=== PATIENT | male | born 1995 | race Caucasian/White ===

== ENCOUNTER 2019-07-22 11:57 | Emergency (ER) | payer OTHER ==
[~2019-07-22] VITALS: Ht 175.3 cm; Wt 68.2 kg
--- NOTE | 2019-07-22 12:11 | PHYS DOC ---
Adult General Chief Complaint Chief Complaint: Chest pain HPI HPI Patient is a 24 year old male with past medical history significant for ADHD but on no medications presents via EMS secondary to complaint of intermittent sharp left-sided chest pain that is rated as moderate to severe that started around 9:00 this morning. He does not recall any specific injury or increased physical activity. Exacerbating factors include deep inspiration and palpation and movement. He denies shortness of breath cough fever or chills recently. He also complains of a headache that is 8/10. Currently his chest pain is 3/10. Review of Systems Review of Systems All other systems were reviewed and found to be within normal limits, except as documented in this note. Current Medications Current Medications Current Medications Medications (Trade) Dose Ordered Sig/Shay Start Time Stop Time Status Last Admin Dose Admin Acetaminophen (Tylenol) 650 mg 1X ONCE 07/22/19 12:15 07/22/19 12:16 DC 07/22/19 12:20 650 MG Aspirin (Children'S Aspirin) 324 mg 1X ONCE 07/22/19 12:15 07/22/19 12:16 DC 07/22/19 12:20 324 MG Allergies Allergies Allergies Coded Allergies Type Severity Reaction Last Updated Verified No Known Drug Allergies 07/22/19 No Physical Exam Physical Exam Constitutional: Well developed, well nourished, no acute distress, non-toxic appearance. [] HENT: Normocephalic, atraumatic, bilateral external ears normal, oropharynx moist, no oral exudates, nose normal. [] Eyes: PERRLA, EOMI, conjunctiva normal, no discharge. [] Neck: Normal range of motion, no tenderness, supple, no stridor. [] Cardiovascular:Heart rate regular rhythm, no murmur [] Lungs & Thorax: Bilateral breath sounds clear to auscultation reproducible tenderness to palpation of the left chest wall Abdomen: Bowel sounds normal, soft, no tenderness, no masses, no pulsatile masses. [] Skin: Warm, dry, no erythema, no rash. [] Back: No tenderness, no CVA tenderness. [] Extremities: No tenderness, no cyanosis, no clubbing, ROM intact, no edema. [] Neurologic: Alert and oriented X 3, normal motor function, normal sensory function, no focal deficits noted. [] Psychologic: Affect normal, judgement normal, mood normal. [] Current Patient Data Vital Signs Vital Signs Date Time Temp Pulse Resp B/P (MAP) Pulse Ox O2 Delivery O2 Flow Rate FiO2 07/22/19 11:57 98.3 83 16 127/82 (97) 97 Room Air 98.3 Lab Values Laboratory Tests Test 07/22/19 12:19 07/22/19 12:37 Sodium Level 141 mmol/L (136-145) Potassium Level 4.2 mmol/L (3.5-5.1) Chloride Level 103 mmol/L (98-107) Carbon Dioxide Level 28 mmol/L (21-32) Anion Gap 10 (6-14) Blood Urea Nitrogen 7 mg/dL (8-26) L Creatinine 1.0 mg/dL (0.7-1.3) Estimated GFR (Cockcroft-Gault) 92.6 Glucose Level 92 mg/dL (70-99) Calcium Level 9.7 mg/dL (8.5-10.1) Creatine Kinase 144 U/L (39-308) Creatine Kinase MB (Mass) 0.5 ng/mL (0.0-3.6) Creatine Kinase MB Relative Index 0.3 % (0-4) Troponin I Quantitative < 0.017 ng/mL (0.000-0.055) Lipase 58 U/L (73-393) L White Blood Count 5.4 x10^3/uL (4.0-11.0) Red Blood Count 5.54 x10^6/uL (4.30-5.70) Hemoglobin 16.6 g/dL (13.0-17.5) Hematocrit 48.3 % (39.0-53.0) Mean Corpuscular Volume 87 fL (79-100) Mean Corpuscular Hemoglobin 30 pg (25-35) Mean Corpuscular Hemoglobin Concent 34 g/dL (31-37) Red Cell Distribution Width 13.1 % (11.5-14.5) Platelet Count 260 x10^3/uL (140-400) Neutrophils (%) (Auto) 52 % (31-73) Lymphocytes (%) (Auto) 38 % (24-48) Monocytes (%) (Auto) 8 % (0-9) Eosinophils (%) (Auto) 1 % (0-3) Basophils (%) (Auto) 1 % (0-3) Neutrophils # (Auto) 2.8 x10^3/uL (1.8-7.7) Lymphocytes # (Auto) 2.0 x10^3/uL (1.0-4.8) Monocytes # (Auto) 0.4 x10^3/uL (0.0-1.1) Eosinophils # (Auto) 0.1 x10^3/uL (0.0-0.7) Basophils # (Auto) 0.0 x10^3/uL (0.0-0.2) Laboratory Tests 07/22/19 12:37 Laboratory Tests 07/22/19 12:19 EKG EKG [] EKG shows a sinus rhythm with no ST changes and normal intervals. Radiology/Procedures Radiology/Procedures [] Course & Med Decision Making Course & Med Decision Making Pertinent Labs and Imaging studies reviewed. (See chart for details) 1210: The patient is seen for headache and chest pain. His EKG is normal and his examination is more consistent with chest wall pain. Will give aspirin due to stated complaint and initiate cardiac work-up. Also give Tylenol for headache. 1318: Patient work-up is negative. We will start him on steroids and anti-inflammatory. Dragon Disclaimer Dragon Disclaimer This electronic medical record was generated, in whole or in part, using a voice recognition dictation system. Departure Departure Impression: Primary Impression: Chest wall pain Disposition: HOME, SELF-CARE Condition: STABLE Patient Instructions: Chest Wall Pain Additional Instructions: Please follow up with your doctor for worsening symptoms. Scripts Prednisone (PREDNISONE) 20 Mg Tablet 2 TAB PO DAILY, #10 TAB Prov: CASA TORRE DO 07/22/19 Diclofenac Sodium (DICLOFENAC SODIUM) 75 Mg Tablet.dr 1 TAB PO BID for 10 Days, #20 TAB 1 Refill Prov: CASA TORRE DO 07/22/19 The HEART Score for CP Pts HEART Score for Chest Pain: HEART Score for Chest Pain Response (Comments) Value History Slighlty/Non-Suspicious 0 ECG Normal 0 Age < 45 0 Risk Factors No Risk Factors 0 Troponin < Normal Limit 0 Total 0 Risk Factors: Risk Factors: None Risk Scores: Score 0 - 3: 2.5% MACE over next 6 weeks - Discharge Home Score 4 - 6: 20.3% MACE over next 6 weeks - Admit for Clinical Observation Score 7 - 10: 72.7% MACE over next 6 weeks - Early Invasive Strategies ACSA TORRE DO Jul 22, 2019 12:11
[2019-07-22] MEDS ORDERED: ACETAMINOPHEN 325 MG TABLET. PO ONE (12:15)
[2019-07-22] MEDS ORDERED: ASPIRIN CHEWABLE 81 MG TABLET. PO ONE (12:15)
--- NOTE | 2019-07-22 12:35 | RAD ---
Examination: CHEST AP ONLY History: Chest pain, headache Comparison: None. Findings: AP portable upright frontal view of the chest was obtained. Costophrenic angles are not fully included on this exam. The cardiomediastinal silhouette is normal. Lungs are clear. There is no pneumothorax. No significant pleural effusion is appreciated. No acute bone abnormality. IMPRESSION: No acute cardiopulmonary process. Electronically signed by: Tremayne Leong MD (07/22/2019 12:32 PM) [id number]
[2019-07-22 12:43] LABS: CALCIUM 9.7 mg/dL (8.5-10.1); GFR 92.6; POTASSIUM 4.2 mmol/L (3.5-5.1)
[2019-07-22 12:48] LABS: BASO % 1 % (0-3); EOS # 0.1 x10^3/uL (0.0-0.7); EOS % 1 % (0-3); HEMATOCRIT 48.3 % (39.0-53.0); HEMOGLOBIN 16.6 g/dL (13.0-17.5); LYMPH % 38 % (24-48); MEAN CORPUSCULAR HEMOGLOBIN 30 pg (25-35); MEAN CORPUSCULAR HGB CONC 34 g/dL (31-37); MEAN CORPUSCULAR VOLUME 87 fL (79-100); MONO # 0.4 x10^3/uL (0.0-1.1); MONO % 8 % (0-9); NEUT # 2.8 x10^3/uL (1.8-7.7); NEUT % 52 % (31-73); PLATELET COUNT 260 x10^3/uL (140-400); RED BLOOD COUNT 5.54 x10^6/uL (4.30-5.70); RED CELL DISTRIBUTION WIDTH 13.1 % (11.5-14.5); WHITE BLOOD COUNT 5.4 x10^3/uL (4.0-11.0)
--- NOTE | 2019-07-22 12:51 | EKG ---
[facility] [address] [place] [address] Test Date: 2019-07-22 Test Time: 12:02:54 Pat Name: SURY MARTE Department: Room: Gender: M [employer]: : [id number] Requested By: CASA TORRE Order Number: [id number] Reading MD: Measurements Intervals [place] Rate: 77 P: 62 [place]: 134 QRS: 83 QRSD: 94 T: 36 QT: 348 QTc: 395 Interpretive Statements SINUS RHYTHM LEFT ATRIAL ABNORMALITY ABNORMAL ECG RI6.01 No previous ECG available for comparison
[2019-07-22] MEDS ORDERED: PRED20TA PO (13:21)
[2019-07-22] MEDS ORDERED: DICL75TA PO (13:21)
[2019-07-22 13:56] VITALS: BP 110/69
== END 2019-07-22 14:00 | disposition home or self-care (01) ==
LOC: ER 11:57
DX: R07.89 Other chest pain (principal); R51 Headache; F90.9 Attention-deficit hyperactivity disorder, unspecified type; Z79.82 Long term (current) use of aspirin
CPT/HCPCS: 36415; 71045; 80048; 82553; 83690; 84484; 85025; 93005; 99285